=== PATIENT | male | born 1990 | race Asian ===

== ENCOUNTER 2018-09-29 10:42 | Emergency (ER) | payer OTHER ==
[2018-09-29 10:54] VITALS: BP 120/72
--- NOTE | 2018-09-29 11:21 | EDPHY ---
H & P Stated Complaint: 2 days of boy aches, fevers, cough, congestion. 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 He is concerned because 2 weeks ago his dog got into a fight with a raccoon. After the fight he picked up his dog and had a close to him. He has since developed flu-like symptoms and was reading on the Internet became concerned about the possibility for rabies or another infection from the raccoon. He himself was never in contact with the raccoon. His dog has been perfectly healthy. He has not had sustained any bites or abrasions to his skin. No nausea or vomiting. He has had mild headache. ROS: 10 systems were reviewed and were negative except those elements noted in the HPI. PMH: Denies Social History: No smoking, no alcohol, no recreational drug use Family History: non-contributory Physical Exam: Gen: Awake, Alert, No Distress HEENT: Nose: no rhinorrhea Eyes: PERRLA, EOMI Mouth: Moist mucosa Neck: Supple, no JVD Chest: nontender, lungs clear to auscultation Heart: S1, S2 normal, no murmur Abd: Soft, non-tender, no guarding Back: no CVA tenderness, no midline tenderness Ext: no edema, non-tender Skin: no rash Neuro: CN II-XII intact, Sensation grossly intact, Strength 5/5 in bilateral upper and lower extremities - Personal History Current Tetanus Diphtheria and Acellular Pertussis (TDAP): Unsure - Medical/Surgical History Hx Asthma: No Hx Chronic Respiratory Disease: No Hx Diabetes: No Hx Cardiac Disease: No Hx Renal Disease: No Hx Cirrhosis: No Hx Alcoholism: No Hx HIV/AIDS: No Hx Splenectomy or Spleen Trauma: No Other PMH: denies - Social History Smoking Status: Current every day smoker Constitutional: Initial Vital Signs Temperature (C) 37.5 C 09/29/18 10:52 Heart Rate 98 09/29/18 10:52 Respiratory Rate 18 09/29/18 10:52 Blood Pressure 120/72 09/29/18 10:52 O2 Sat (%) 96 09/29/18 10:52 O2 Delivery Mode Room Air Allergies/Adverse Reactions: No Known Allergies Allergy (Unverified 08/26/15 23:39) Home Medications: Medication Instructions Recorded NK [No Known Home Meds] 08/26/15 Medical Decision Making ED Course/Re-evaluation: 27-year-old male with flu-like symptoms he is concerned he may have been possibly exposed to a zoonotic infection. He never had any direct contact with the animal. No breaks in his skin. His dog is well. Symptoms are more consistent with the viral illness which is prevalent at this time. He has been reassured. Will discharge with follow up at [facility], return for any concerns. Departure - Departure Disposition: Home, Routine, Self-Care Clinical Impression: URI (upper respiratory infection) Condition: Good Instructions: Upper Respiratory Infection (ED), Viral Syndrome (ED) Additional Instructions: Follow up with [facility] in 3-4 days if symptoms are not improving. Alternate acetaminophen (1000 mg) with ibuprofen (400 mg) every 4 hours as needed for fevers, chills, aches or pain. Referrals: CRYSTAL Deng,. [Clinic] - As per Instructions
== END 2018-09-29 11:45 | disposition home or self-care (01) ==
DX: J06.9 Acute upper respiratory infection, unspecified (principal); F17.200 Nicotine dependence, unspecified, uncomplicated